=== PATIENT | male | born 1950 | race Two or more races ===

== ENCOUNTER 2017-06-29 17:42 | Emergency (ER) | payer MEDICARE, MEDICAID ==
[~2017-06-29] VITALS: Ht 172.7 cm; Wt 81.8 kg
[~2017-06-29 17:42] MED LIST: FINA5TAB11 PO; LISI-600 PO; LOSA1TAB36 PO; LOVA40TA2 PO; PHEN-716 PO; PHEN-824 PO; SULF1TAB49 PO
[2017-06-29 18:44] LABS: CLARITY,URINE Clear (Clear); COLOR,URINE Yellow (Yellow); GLUCOSE, URINE Negative (Neg); KETONES,URINE Negative (Neg); LEUKOCYTE ESTERASE ,URINE Negative (Neg); NITRITES, URINE Negative (Neg); OCCULT BLOOD,URINE Negative (Neg); PROTEIN,URINE Negative (Neg)
[2017-06-29 18:59] LABS: UA COLLECTION TYPE CLN CATCH MIDSTREAM
[2017-06-29 21:09] LABS: BASOPHILS # (AUTO) 0.1 X10'3 (0-0.2); BASOPHILS % (AUTO) 0.7 % (0-1); EOSINOPHILS # (AUTO) 0.1 X10'3 (0-0.9); EOSINOPHILS % (AUTO) 1.7 % (0-6); HEMATOCRIT 47.2 % (42.0-52.0); LYMPHOCYTES # (AUTO) 2.4 X10'3 (1.1-4.8); LYMPHOCYTES % (AUTO) 32.9 % (21-51); MEAN CORPUSCULAR HEMOGLOBIN 30.1 PG (27.0-31.0); MEAN CORPUSCULAR VOLUME 88.6 FL (78-98); MEAN PLATELET VOLUME 7.6 FL (7.4-10.4); MONOCYTES # (AUTO) 0.7 X10'3 (0-0.9); MONOCYTES % (AUTO) 9.6 % (2-12); NEUTROPHILS % (AUTO) 55.1 % (42-75); PLATELET COUNT 291 X10'3 (140-440); RED BLOOD COUNT 5.33 X10'6 (4.70-6.10); RED CELL DISTRIBUTION WIDTH 13.5 % (11.5-14.5); WHITE BLOOD COUNT 7.3 X10'3 (4.5-11.0)
[2017-06-29] MEDS ORDERED: METR500T4 PO (21:12)
[2017-06-29] MEDS ORDERED: CIPR-230 PO (21:12)
[2017-06-29 21:36] VITALS: BP 150/94
== END 2017-06-29 21:38 | disposition home or self-care (01) ==
LOC: ER 17:43
DX: K38.8 Other specified diseases of appendix (principal); E78.00 Pure hypercholesterolemia, unspecified; I10 Essential (primary) hypertension; Z87.442 Personal history of urinary calculi; Z98.890 Other specified postprocedural states; Z79.899 Other long term (current) drug therapy
CPT/HCPCS: 36415; 74176; 81003; 85025; 99285

== ENCOUNTER 2017-07-02 05:28 | Emergency (ER) | payer MEDICARE, MEDICAID ==
[~2017-07-02] VITALS: Ht 172.7 cm; Wt 88.8 kg
[~2017-07-02 05:28] MED LIST changes: +CIPR-230 PO; +METR500T4 PO
[2017-07-02] MEDS ORDERED: CEPH500C5 PO (06:22)
[2017-07-02 06:34] VITALS: BP 140/92
== END 2017-07-02 06:39 | disposition home or self-care (01) ==
LOC: ER 05:29
DX: L03.811 Cellulitis of head [any part, except face] (principal); E78.00 Pure hypercholesterolemia, unspecified; I10 Essential (primary) hypertension; Z98.890 Other specified postprocedural states; Z79.02 Long term (current) use of antithrombotics/antiplatelets; Z79.2 Long term (current) use of antibiotics
CPT/HCPCS: 99283

== ENCOUNTER 2017-08-13 23:05 | Emergency (ER) | payer MEDICARE, MEDICAID ==
[~2017-08-13] VITALS: Ht 172.7 cm; Wt 87.0 kg
[~2017-08-13 23:05] MED LIST changes: +CEPH500C5 PO; -CIPR-230 PO; -METR500T4 PO
[2017-08-13] MEDS ORDERED: ketorolac trometh inj. 60 MG/2 ML VIAL IM ONE (23:40)
[2017-08-13] MEDS ORDERED: IBUP-1985 PO (23:40)
[2017-08-13] MEDS ORDERED: [UNRECOGNIZED DRUG - CODE] TOP (23:40)
[2017-08-14 00:03] VITALS: BP 155/85
== END 2017-08-14 00:04 | disposition home or self-care (01) ==
LOC: ER 23:05
DX: M75.31 Calcific tendinitis of right shoulder (principal); I10 Essential (primary) hypertension; E78.00 Pure hypercholesterolemia, unspecified; Z79.899 Other long term (current) drug therapy
CPT/HCPCS: 73030; 96372; 99284; J1885